=== PATIENT | male | born 1970 | race Caucasian/White ===

== ENCOUNTER 2017-10-24 11:59 | Inpatient (IN) ==
[2017-10-24 12:34] LABS: Bilirubin,Urine Negative (Negative); Blood,Urine Negative (Negative); Clarity,Urine Clear (Clear); Color,Urine Dark Yellow (Yellow); Glucose,Urine (UA) Normal (Normal); Ketones,Urine Negative (Negative); Leukocyte Esterase,Urine Negative (Negative); Nitrite,Urine Negative (Negative); PH,Urine 5.5 pH Units (5.0-8.0); Protein,Urine 100 mg/dL (Neg-Trace); Specific Gravity,Urine 1.025 (1.010-1.025); Urobilinogen,Urine Normal (Normal)
[2017-10-24 12:38] LABS: Bacteria,Urine None Seen per hpf (None-Few); Hyaline Casts,Urine None Seen per lpf (None-Few); Squamous Epithelial Cell,Urine Moderate per lpf (None-Few); WBC,Urine 0-3 per hpf (0-3)
[2017-10-24 13:21] LABS: Basophils % 0.3 %; Eosinophils % 0.3 %; Hematocrit 49.3 % (37.5-50.1); Immature Granulocytes % 0.4 % (0-4); Lymphocytes # 1.9 K/mcL (0.6-4.6); Lymphocytes % 16.2 %; Mean Corpuscular HGB Conc 34.5 g/dL (31.6-35.5); Mean Corpuscular Hemoglobin 31.1 pg (28.0-33.3); Mean Corpuscular Volume 90.3 fL (83.0-100.0); Mean Platelet Volume 10.7 fL (9.4-12.4); Monocytes # 0.7 K/mcL (0.0-1.3); Monocytes % 5.7 %; Platelet Count 368 K/mcL (140-400); Red Blood Count 5.46 M/mcL (4.19-5.50); Red Cell Distribution Width 12.3 % (11.5-14.5); Segmented Neutrophils % 77.1 %
[2017-10-24 14:04] LABS: Alanine Aminotransferase 74 Units/L (7-52); Albumin 4.7 g/dL (3.5-5.7); Albumin/Globulin Ratio 1.1 (1.1-2.2); Alkaline Phosphatase 68 Units/L (34-104); Aspartate Amino Transferase 29 Units/L (13-39); BUN/Creatinine Ratio 8 (6-26); Bilirubin,Direct 0.2 mg/dL (0.0-0.2); Bilirubin,Indirect 0.9 mg/dL (0.0-1.2); Bilirubin,Total 1.1 mg/dL (0.3-1.0); Blood Urea Nitrogen 9 mg/dL (6-20); Calcium 9.8 mg/dL (8.6-10.3); Carbon Dioxide 24 mEq/L (23-29); Chloride 105 mEq/L (98-107); Globulin 4.3 g/dL (2.4-3.5); Glucose 119 mg/dL (70-105); Lipase 9 Units/L (11-82); Osmolality,Calculated 286 (280-300); Potassium 3.8 mEq/L (3.5-5.1); Sodium 138 mEq/L (136-145); eGFR For African Americans > 60 (> 60); eGFR For Non-African Americans > 60 (> 60)
[2017-10-24] MEDS ORDERED: *HR* HYDROmorphone (PF) 1 MG/ML SYRINGE IVP ONE ×2 (15:11→18:45)
[2017-10-24] MEDS ORDERED: 0.9 % Sodium Chloride 1,000 ML IVC ONE (15:11)
[2017-10-24] MEDS ORDERED: Ondansetron 4 MG/2 ML VIAL IVP ONE (15:11)
--- NOTE | 2017-10-24 16:49 | Emergency Department Note ---
START Narrative - START START: I examined this patient and my medical decision-making was reviewed with the Resident Physician. I agree with the documented findings, disposition and treatment plan as described except to the extent set forth below. 47yo M here for upper abd pain. hx of pancreatitis. Patient states he has recurrent upper abdominal pain associated with nausea and vomiting. Workup here does not reveal any significant lab findings however he does have evidence of pancreatitis on the CAT scan. We will admit the patient for observation for IV fluids and antiemetics and pancreatic and bowel rest. He has had a previous cholecystectomy.
[2017-10-24 17:12] LABS: Amylase 22 Units/L (29-103)
--- NOTE | 2017-10-24 17:35 | Emergency Department Note ---
Disposition Clinical Impression: Acute pancreatitis Qualifiers: Pancreatitis type: unspecified pancreatitis type Acute pancreatitis complication: unspecified Qualified Code(s): K85.90 - Acute pancreatitis without necrosis or infection, unspecified Disposition: Admitted As Inpatient Condition: Good Referrals: Maritza Aguiar [Primary Care Provider] - Forms: ED Satisfaction Letter Nausea/Vomiting/Diarrhea HPI - General Chief complaint: ED Nausea/Vomiting/Diarrhea Stated complaint: N/V/D Time Seen by Provider: 10/24/17 14:53 Source: patient Limitations: no limitations Nursing Notes Reviewed: Yes Vital Signs Reviewed: Yes - History of Present Illness HPI Narrative: Patient presents to the emergency department for evaluation of nausea vomiting and abdominal pain. Patient's symptoms started 4 days ago. Patient states unable to keep anything down. He has epigastric pain that is tender to palpation. Patient states that he had similar symptoms in the past had gallbladder problems. Previous cholecystectomy in the . The time he had problems with his pancreatic duct. He said it was blocked. He said they did an intervention. Patient has no other insight into what intervention was. The patient has initial blood work done from triage showing the he has a mild elevated ALC but no significant elevated lipase. Patient will undergo further evaluation with CT with IV contrast the abdomen and pelvis. Pain and nausea control. - Related Data Home Medications Medication Instructions Recorded Confirmed No Known Home Drugs 10/24/17 10/24/17 Allergies Allergy/AdvReac Type Severity Reaction Status Date / Time No Known Allergies Allergy Verified 10/24/17 12:10 Review of Systems: CONSTITUTIONAL: No weight loss, fever, chills, weakness or fatigue. HEENT: Eyes: No visual changes. Ears, Nose, Throat: No hearing loss, difficulty talking or unable to swallow. SKIN: No rash or itching. CARDIOVASCULAR: No chest pain, chest pressure or chest discomfort. No palpitations or edema. RESPIRATORY: No shortness of breath, cough or sputum. GASTROINTESTINAL: Nausea vomiting and abdominal pain GENITOURINARY: No burning on urination or hematuria. NEUROLOGICAL: No headache, dizziness, syncope, paralysis, ataxia, numbness or tingling in the extremities. No change in bowel or bladder control. MUSCULOSKELETAL: No muscle pain, back pain, joint pain or stiffness. Past Medical History - Past Medical History Medical history: Reports: asthma Psychiatric history: Reports: no psych history - Social History Smoking Status: Never smoker Smokeless Tobacco Status: No Alcohol use: Reports: none Drug use: Reports: none Physical Exam General: Well appearing, nontoxic, no acute distress Head: Normocephalic Atraumatic Eyes: PERRL, EOMI ENT: Airway patent, no stridor Neck: supple, no meningismus Chest: Lungs clear to auscultation bilateral Cardiac: Regular rate and rhythm, no murmurs, rubs or gallops Abdomen: Tenderness to the epigastric and right upper quadrant area with mild guarding. No rebound tenderness. No CVA tenderness. Skin: No rash, normal skin tone Neuro: Alert and Oriented to person, place, and time; No focal deficit, CN 2-12 symmetric and intact - General Limitations: no limitations General appearance: alert, in no apparent distress Course - Reevaluation(s) Reevaluation #1: CT scan shows peripancreatic fat stranding at the head of the pancreas. Pancreatitis with clinically with this patient. Patient has not had any recent or recurring symptoms consistent with chronic pancreatitis. 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 Patient will be brought into the hospital for further evaluation of pancreatitis. A call will be placed to GI. - Consultations Consultation #1: Discussed with GI, Dr. Lopes. Recommends MRCP for evaluation of the pancreatic duct. Consultation #2: Discussed with hospitalist, Dr. Courtney accepts. Vital Signs Temperature 98.4 F 10/24/17 12:07 Pulse Rate 91 10/24/17 12:07 Respiratory Rate 16 10/24/17 12:07 Blood Pressure 167/118 10/24/17 12:07 O2 Sat by Pulse Oximetry 95 10/24/17 12:07 Temperature 98.4 F 10/24/17 12:07 Pulse Rate 87 10/24/17 16:43 Respiratory Rate 16 10/24/17 16:43 Blood Pressure 125/84 10/24/17 16:43 O2 Sat by Pulse Oximetry 93 10/24/17 16:43 Oxygen Delivery Oxygen Delivery Room Air Nausea/Vomiting/Diarrhea - Lab Data Result diagrams: 10/24/17 13:15 10/24/17 13:15 Lab Results 10/24/17 10/24/17 10/24/17 Range/Units 12:15 13:15 13:15 WBC 11.6 H (4.3-11.1) K/mcL RBC 5.46 (4.19-5.50) M/mcL Hgb 17.0 H (12.9-16.9) g/dL Hct 49.3 (37.5-50.1) % MCV 90.3 (83.0-100.0) fL MCH 31.1 (28.0-33.3) pg MCHC 34.5 (31.6-35.5) g/dL RDW 12.3 (11.5-14.5) % Plt Count 368 (140-400) K/mcL MPV 10.7 (9.4-12.4) fL Immature Gran % 0.4 (0-4) % Seg Neutrophils % 77.1 % Lymphocytes % 16.2 % Monocytes % 5.7 % Eosinophils % 0.3 % Basophils % 0.3 % Neutrophils # 9.0 H (1.6-8.9) K/mcL Lymphocytes # 1.9 (0.6-4.6) K/mcL Monocytes # 0.7 (0.0-1.3) K/mcL Eosinophils # 0.0 (0.0-0.6) K/mcL Basophils # 0.0 (0.0-0.2) K/mcL Sodium 138 (136-145) mEq/L Potassium 3.8 (3.5-5.1) mEq/L Chloride 105 (98-107) mEq/L Carbon Dioxide 24 (23-29) mEq/L BUN 9 (6-20) mg/dL Creatinine 1.09 (0.70-1.30) mg/dL Est GFR ( Amer) > 60 (> 60) Est GFR (Non-Af Amer) > 60 (> 60) BUN/Creatinine Ratio 8 (6-26) Glucose 119 H (70-105) mg/dL Calculated Osmolality 286 (280-300) Calcium 9.8 (8.6-10.3) mg/dL Total Bilirubin 1.1 H (0.3-1.0) mg/dL Direct Bilirubin 0.2 (0.0-0.2) mg/dL Indirect Bilirubin 0.9 (0.0-1.2) mg/dL AST 29 (13-39) Units/L ALT 74 H (7-52) Units/L Alkaline Phosphatase 68 (34-104) Units/L Serum Total Protein 9.0 H (6.4-8.9) g/dL Albumin 4.7 (3.5-5.7) g/dL Globulin 4.3 H (2.4-3.5) g/dL Albumin/Globulin Ratio 1.1 (1.1-2.2) Amylase 22 L (29-103) Units/L Lipase 9 L (11-82) Units/L Urine Color Dark Yellow (Yellow) Urine Clarity Clear (Clear) Urine pH 5.5 (5.0-8.0) pH Units Ur Specific [place] 1.025 (1.010-1.025) Urine Protein 100 H (Neg-Trace) mg/dL Urine Glucose (UA) Normal (Normal) mg/dL Urine Ketones Negative (Negative) mg/dL Urine Blood Negative (Negative) Urine Nitrite Negative (Negative) Urine Bilirubin Negative (Negative) Urine Urobilinogen Normal (Normal) mg/dL Ur Leukocyte Esterase Negative (Negative) Urine Microscopic RBC 3-5 H (0-3) per hpf Urine Microscopic WBC 0-3 (0-3) per hpf Ur Squamous Epith Cells Moderate H (None-Few) per lpf Urine Bacteria None Seen (None-Few) per hpf Hyaline Casts None Seen (None-Few) per lpf Ur Culture Indicated? NO (NO)
[2017-10-24] MEDS ORDERED: Metoclopramide 10 MG/2 ML VIAL IVP ONE (18:45)
[2017-10-24] MEDS ORDERED: Naloxone 0.4 MG/ML INJ IVP PRN ×2 (21:18)
--- NOTE | 2017-10-24 21:26 | Internal Med History&Physical ---
Date of Encounter: 10/24/17 Time of Encounter: 21:24 Assessment and Plan (1) Acute pancreatitis Current visit: Yes Status: Acute Possible acute pancreatitis by imaging, consider possible pancreatic mass Nothing by mouth after midnight, MRCP recommended by GI IV fluids, Dilaudid as needed Protonix IV for GI prophylaxis and subcutaneous heparin for DVT prophylaxis. The patient will be admitted as inpatient, expected to stay more than 2 midnights. Full code. Time spent on this admission 40 minutes Qualifiers: Pancreatitis type: unspecified pancreatitis type Acute pancreatitis complication: unspecified Qualified Code(s): K85.90 - Acute pancreatitis without necrosis or infection, unspecified (2) Lesion of vertebra Current visit: Yes Status: Acute C3 vertebral lesion Consider further imaging if a pancreatic mass is found (3) Dehydration Current visit: Yes Status: Acute (4) Leukocytosis Current visit: Yes Status: Acute Qualifiers: Leukocytosis type: unspecified Qualified Code(s): D72.829 - Elevated white blood cell count, unspecified (5) Polycythemia Current visit: Yes Status: Acute Likely secondary to dehydration (6) Intractable nausea and vomiting Current visit: Yes Status: Acute Qualifiers: Vomiting type: unspecified Qualified Code(s): R11.2 - Nausea with vomiting , unspecified Internal Medicine - H&P: HPI Chief complaint: Abdominal pain Admitted From: Emergency Dept History of present illness: Mr. Bhakta is a 47 year old male with no past medical history, recently diagnosed with a possible C3 vertebral lesion last week at [facility], came complaining of 4 days of abdominal pain, epigastric that got worse yesterday and was accompanied by nausea vomiting and some watery diarrhea. The epigastric pain persists without radiation. CT scan of the abdomen shows a peripancreatic fat stranding mainly in the pancreatic head the Maria R percent acute interstitial pancreatitis. His lipase is normal ALT is 74. Pain is rated at 4 out of 10, hemoglobin 17 and hematocrit is 49. White blood cell count is 11.6. The patient feels dizzy. The gastroenterology service was called and recommended to do an MRCP. Patient denies any other complaints, had a cholecystectomy many years ago in 1994, back surgery, does not drink. Past Med Surg Social Fam HX - Past Medical History Medical history: asthma, other (C3 vertebral lesion diagnosed at [facility], diverticulosis) Psychiatric history: no psych history - Past Surgical History Surgical History: cholecystectomy, other (Back surgery) - Social History Smoking Status: Never smoker Smokeless Tobacco Status: No Alcohol use: none Drug use: none - Additional Family History Additional family history: Mother with diabetes, liver cancer, colon cancer and myocardial infarction. Father with pacemaker and Parkinson's Internal Medicine - H&P: Meds No Known Home Drugs 10/24/17 [History] 3 Allergy/AdvReac Type Severity Reaction Status Date / Time No Known Allergies Allergy Verified 10/24/17 12:10 All Systems PM: A 10-system review of systems was performed and is negative for pertinent findings except as documented above in the HPI. Review of systems: Persistent epigastric pain and nausea, other systems out of the 10 reviewed were negative - Constitutional Vitals: Temp Pulse Resp BP Pulse Ox 98.4 F 87 16 125/88 93 10/24/17 12:07 10/24/17 20:00 10/24/17 20:00 10/24/17 20:00 10/24/17 20:00 General appearance: Present: A&O X 3 - Head Head exam: Present: atraumatic, normocephalic - Eye Eye exam: Present: PERRL, conjuntiva pink, sclera anicteric Pupils: Present: PERRL - Neck Neck exam general surgery: Present: supple, trachea midline. Absent: lymphadenopathy - Respiratory Respiratory exam: Present: CTAB. Absent: accessory muscle use, rales, rhonchi, wheezes - Cardiovascular Cardiovascular exam: Present: RRR, +S1, +S2. Absent: diastolic murmur, gallop, rubs, systolic murmur - GI/Abdominal GI/Abdominal exam: Present: distended, normal bowel sounds, soft, tenderness ( Epigastric tenderness), no peritoneal signs - Extremities Exam Extremities exam: Present: warm, radial pulses palpable and symmetrical. Absent : calf tenderness, cyanotic, pedal edema - Neurological Exam Neurological exam: Present: CN II-XII intact, oriented X3, no focal deficits. Absent: pronater drift, facial droop, speech deficit - Skin Skin exam: Present: dry, intact Internal Med - H&P Results - Labs CBC & Chem 7: 10/24/17 13:15 10/24/17 13:15
[2017-10-24] MEDS: Pantoprazole 40 MG VIAL IVP SCH (22:53)
[2017-10-24] MEDS: D5% in 0.45% NACL 1,000 ML IVC SCH (22:54)
[2017-10-24] MEDS: *HR* HYDROmorphone (PF) 1 MG/ML SYRINGE IVP PRN (22:54)
[2017-10-24] MEDS: *HR* Heparin 5,000 UNIT/ML VIAL SQ SCH (23:01)
[2017-10-25] MEDS: Pantoprazole 40 MG VIAL IVP SCH (05:26)
[2017-10-25] MEDS: *HR* Heparin 5,000 UNIT/ML VIAL SQ SCH ×3 (05:27→22:31)
[2017-10-25 06:30] LABS: Alanine Aminotransferase 56 Units/L (7-52); Albumin 3.6 g/dL (3.5-5.7); Albumin/Globulin Ratio 1.4 (1.1-2.2); Alkaline Phosphatase 48 Units/L (34-104); Aspartate Amino Transferase 26 Units/L (13-39); BUN/Creatinine Ratio 9 (6-26); Blood Urea Nitrogen 9 mg/dL (6-20); Calcium 8.3 mg/dL (8.6-10.3); Carbon Dioxide 25 mEq/L (23-29); Chloride 104 mEq/L (98-107); Cholesterol 199 mg/dL (< 200); Globulin 2.5 g/dL (2.4-3.5); Glucose 134 mg/dL (70-105); HDL Cholesterol 22 mg/dL (40-59); LDL Cholesterol,Calculated 154 mg/dL (0-99); Lipase 20 Units/L (11-82); Magnesium 1.8 mg/dL (1.6-2.6); Osmolality,Calculated 283 (280-300); Potassium 3.5 mEq/L (3.5-5.1); Sodium 136 mEq/L (136-145); Total Protein 6.1 g/dL (6.4-8.9); Triglycerides 116 mg/dL (< 150); eGFR For African Americans > 60 (> 60); eGFR For Non-African Americans > 60 (> 60)
[2017-10-25 06:34] LABS: Hematocrit 39.6 % (37.5-50.1); Mean Corpuscular HGB Conc 33.8 g/dL (31.6-35.5); Mean Corpuscular Volume 91.7 fL (83.0-100.0); Mean Platelet Volume 10.9 fL (9.4-12.4); Platelet Count 287 K/mcL (140-400); Red Blood Count 4.32 M/mcL (4.19-5.50); Red Cell Distribution Width 12.3 % (11.5-14.5)
[2017-10-25 07:27] LABS: Hemoglobin 13.4 g/dL (12.9-16.9)
[2017-10-25] MEDS: *HR* HYDROmorphone (PF) 1 MG/ML SYRINGE IVP PRN ×4 (07:45→22:31)
[2017-10-25] MEDS: D5% in 0.45% NACL 1,000 ML IVC SCH ×2 (07:59→13:33)
--- NOTE | 2017-10-25 10:22 | Internal Med Progress Note ---
Date of Encounter: 10/25/17 Time of Encounter: 10:17 - Subjective Interval history: HPI: 47 year old male with 4 days of epigastric abdominal pain and was accompanied by nausea, vomiting, and some watery diarrhea. Epigastric pain is worsened with eating. CT A/P with subtle peripancreatic fat stranding in the region of the pancreatic head, mild diverticulosis. Lipase is normal. ALT was 74 on admission and 56 today. Triglycerides are normal at 116. MRCP has been ordered along with GI consult. He was made NPO. Interval changes: He stateshis n is minimally improved this am Physical Exam: See below Assessment and Plan Acute pancreatitis Continue NPO MRCP recommended by GI (stilpending) IV fluids, Dilaudid as needed Protonix IV for GI prophylaxis C3 vertebral lesion: Consider further imaging if a pancreatic mass is found Polycythemia Likely secondary to dehydration Intractable nausea and vomiting - Constitutional Vitals: Temp Pulse Resp BP Pulse Ox 98.1 F 73 15 136/82 95 10/25/17 06:53 10/25/17 06:53 10/25/17 06:53 10/25/17 06:53 10/25/17 06:53 General appearance: Present: A&O X 3, pleasant - Head Head exam: Present: atraumatic, normocephalic - Eye Eye exam: Present: PERRL, conjuntiva pink, sclera anicteric Pupils: Present: PERRL - Neck Neck exam general surgery: Present: supple, trachea midline. Absent: lymphadenopathy - Respiratory Respiratory exam: Present: CTAB. Absent: accessory muscle use, rales, rhonchi, wheezes - Cardiovascular Cardiovascular exam: Present: RRR, +S1, +S2. Absent: diastolic murmur, gallop, rubs, systolic murmur - GI/Abdominal GI/Abdominal exam: Present: guarding, normal bowel sounds, soft, no peritoneal signs. Absent: distended, hyperactive bowel sounds, hypoactive bowel sounds, rebound, splenomegaly, tenderness - Extremities Exam Extremities exam: Present: warm, radial pulses palpable and symmetrical. Absent : calf tenderness, cyanotic, pedal edema - Neurological Exam Neurological exam: Present: CN II-XII intact, oriented X3, no focal deficits. Absent: pronater drift, facial droop, speech deficit - Skin Skin exam: Present: dry, intact Internal Medicine: Result - Labs CBC & Chem 7: 01/25/18 05:39 10/25/17 05:39 Labs: Short CBC 10/25/17 Range/Units 05:39 WBC 8.4 (4.3-11.1) K/mcL Hgb 13.4 D (12.9-16.9) g/dL Hct 39.6 (37.5-50.1) % Plt Count 287 (140-400) K/mcL BMP 10/25/17 05:39 Sodium 136 Potassium 3.5 Chloride 104 Carbon Dioxide 25 BUN 9 Creatinine 1.05 Glucose 134 H Calcium 8.3 L Liver Function 10/25/17 Range/Units 05:39 Total Bilirubin 1.0 (0.3-1.0) mg/dL AST 26 (13-39) Units/L ALT 56 H (7-52) Units/L Alkaline Phosphatase 48 (34-104) Units/L Albumin 3.6 (3.5-5.7) g/dL Consult Discharge Plan - Plan Referrals: Maritza Aguiar [Primary Care Provider] -
--- NOTE | 2017-10-25 12:02 | Gastroenterology Consult Note ---
<Shade Kaur Danial - Last Filed: 10/25/17 12:00> Date of Encounter: 10/25/17 Time of Encounter: 10:15 - Assessment and plan (1) Epigastric pain Current Visit: Yes Status: Acute Assessment and plan: Continue PPI and complete EGD today to r/o esophagitis, gastritis, duodenitis, PUD, MW tear, or AVM. Keep patient NPO. (2) Acute pancreatitis Current Visit: Yes Status: Acute Assessment and plan: CT A/P with subtle peripancreatic fat stranding in the region of the pancreatic head, mild diverticulosis. Lipase is normal. ALT was 74 on admission and 56 today. Triglycerides are normal at 116. MRCP has been ordered. Check IgG4, ionized calcium, and SOPHIE. Qualifiers: Pancreatitis type: unspecified pancreatitis type Acute pancreatitis complication: unspecified Qualified Code(s): K85.90 - Acute pancreatitis without necrosis or infection, unspecified - Time Spent With Patient Total time spent is greater than 50% in coordination of care (as documented) at patient's floor/unit and/or counseling patient: GI History of Present Illness - Data of Consult Patient: new to practice Consult date: 10/25/17 Requesting Physician: Sánchez Grimes - Consult Narrative Reason for consult: Pancreatitis History of present illness: Mr. Bhakta is a 47 year old male with PMHx of asthma, diverticulosis, recently diagnosed with possible C3 vertebral lesion presented with 4 days of epigastric abdominal pain and was accompanied by nausea, vomiting, and some watery diarrhea. Epigastric pain is worsened with eating. CT A/P with subtle peripancreatic fat stranding in the region of the pancreatic head, mild diverticulosis. Lipase is normal. ALT was 74 on admission and 56 today. Triglycerides are normal at 116. MRCP has been ordered but not yet completed. Procedures: None NSAIDs: None Anticoagulation: None Past Med Surg Social Fam HX - Past Medical History Medical history: asthma, other Psychiatric history: no psych history - Past Surgical History Surgical History: cholecystectomy, other - Social History Smoking Status: Never smoker Smokeless Tobacco Status: No Alcohol use: none Drug use: none - Gastrointestinal Gastrointestinal: Present: as per HPI - Constitutional Constitutional: as per HPI - EENT Eyes: as per HPI Ears: Present: as per HPI Nose, mouth and throat: Present: as per HPI - Cardiovascular Cardiovascular ROS: Present: as per HPI - Respiratory Respiratory IM: Present: as per HPI - Genitourinary Genitourinary: Absent: change in color, Urinary frequency - Neurological ROS Neurological GI: Present: as per HPI - Hematologic/Lymphatic Hematologic/Lymphatic pediatric: Present: as per HPI - Musculoskeletal Musculoskeletal ROS GI: Present: as per HPI - Integumentary Integumentary GI: Present: as per HPI - Psychiatric ROS Psychiatric GI: Present: as per HPI - Endocrine Endocrine IM: Present: as per HPI - Constitutional Vitals: Temp Pulse Resp BP Pulse Ox 98.2 F 83 16 126/81 95 10/25/17 11:10 10/25/17 11:10 10/25/17 11:10 10/25/17 11:10 10/25/17 11:10 General appearance: Present: cooperative, A&O X 3, no acute distress, answers questions appropriately - Head Head exam: Present: atraumatic, normocephalic - Eye Eye exam: Present: normal appearance, sclera anicteric - ENT ENT exam: Present: mucous membranes dry - Neck Neck exam general surgery: Present: normal inspection, trachea midline - Respiratory Respiratory exam: Present: CTAB. Absent: rales, rhonchi - Cardiovascular Cardiovascular exam: Present: RRR, +S1, +S2 - GI/Abdominal GI/Abdominal exam: Present: soft, tenderness (epigastric), no peritoneal signs. Absent: distended, firm, guarding - Rectal Rectal exam: Present: deferred - Extremities Exam Extremities exam: Present: warm - Neurological Exam Neurological exam: Present: no focal deficits - Psychiatric Psychiatric exam: Present: normal affect, normal mood - Skin Skin exam: Present: dry, intact, normal color, warm Results - Labs CBC & Chem 7: 10/25/17 05:39 10/25/17 05:39 Labs: Last Result Calcium 8.3 mg/dL (8.6-10.3) L 10/25/17 05:39 Triglycerides 116 mg/dL (< 150) 10/25/17 05:39 Entire Visit Hgb 13.4 g/dL (12.9-16.9) D 10/25/17 05:39 Hct 39.6 % (37.5-50.1) 10/25/17 05:39 Total Bilirubin 1.0 mg/dL (0.3-1.0) 10/25/17 05:39 AST 26 Units/L (13-39) 10/25/17 05:39 ALT 56 Units/L (7-52) H 10/25/17 05:39 Amylase 22 Units/L (29-103) L 10/24/17 13:15 Lipase 20 Units/L (11-82) 10/25/17 05:39 Consult Discharge Plan - Plan Referrals: Maritza Aguiar [Primary Care Provider] - <Krystian Fragoso - Last Filed: 10/25/17 14:43> Date of Encounter: 10/25/17 Time of Encounter: 13:00 - Time Spent With Patient Total time spent is greater than 50% in coordination of care (as documented) at patient's floor/unit and/or counseling patient: GI History of Present Illness - Data of Consult Requesting Physician: Sánchez Grimes - Consult Narrative History of present illness: Mr. Bhakta is a 47 year old male - Constitutional Vitals: Temp Pulse Resp BP Pulse Ox 98.2 F 75 16 119/88 95 10/25/17 11:10 10/25/17 13:45 10/25/17 13:45 10/25/17 13:45 10/25/17 13:45 Results - Labs CBC & Chem 7: 10/25/17 05:39 10/25/17 05:39 Labs: Last Result Calcium 8.3 mg/dL (8.6-10.3) L 10/25/17 05:39 Triglycerides 116 mg/dL (< 150) 10/25/17 05:39 Entire Visit Hgb 13.4 g/dL (12.9-16.9) D 10/25/17 05:39 Hct 39.6 % (37.5-50.1) 10/25/17 05:39 Total Bilirubin 1.0 mg/dL (0.3-1.0) 10/25/17 05:39 AST 26 Units/L (13-39) 10/25/17 05:39 ALT 56 Units/L (7-52) H 10/25/17 05:39 Amylase 22 Units/L (29-103) L 10/24/17 13:15 Lipase 20 Units/L (11-82) 10/25/17 05:39 - Attending Attestation I examined this patient and my medical decision-making was reviewed with the HAND FINISHER. I agree with the documented findings, disposition and treatment plan as described except to the extent set forth below. Patient with epigastric pain. Started on Sunday. CT scan done which showed some mild haziness in the pancreatic head region but patient pancreatic enzymes are normal, Recommendation: EGD to rule out gastric/esophageal causes for his abdominal pain
[2017-10-25 12:20] LABS: VBG Ionized Calcium 1.14 mmol/L (1.15-1.35)
[2017-10-25] MEDS ORDERED: D5% in 0.3% NACL 1,000 ML IVC SCH (12:30)
--- NOTE | 2017-10-25 13:38 | Anesthesia Evaluation PreOp ---
Date of Encounter: 10/25/17 Time of Encounter: 13:35 - Past History Planned Operation: EGD Cardiac History: Denies any Significant Hx Pulmonary History: Asthma ACCOUNT CONSULTANT History: Denies Any Significant HX Other Medical History: Other (Polycythemia, N/V) Anesthesia History: No Prior Anesthetic Complications, Past Anesthesia (GB, Back sx) Alcohol Use: none Drug use: none Medications and Allergies No Known Home Drugs 10/24/17 [History] 3 Allergy/AdvReac Type Severity Reaction Status Date / Time No Known Allergies Allergy Verified 10/24/17 12:10 - Meds/Allergy Pre-op Review Medications Reviewed: Yes Allergies Reviewed: Yes Beta Blockers on Current Med List: No Anesthesia Results - Labs 10/25/17 05:39 10/25/17 05:39 - Imaging EKG: report reviewed (SINUS RHYTHM WITH FREQUENT SUPRAVENTRICULAR PREMATURE COMPLEXES) Anesthesia Exam O2 Sat O2 Sat by Pulse Oximetry 95 O2 Sat by Pulse Oximetry 95 O2 Sat by Pulse Oximetry 96 O2 Sat by Pulse Oximetry 93 O2 Sat by Pulse Oximetry 92 O2 Sat by Pulse Oximetry 93 O2 Sat by Pulse Oximetry 92 O2 Sat by Pulse Oximetry 93 O2 Sat by Pulse Oximetry 94 Vital Signs Temp Pulse Resp BP Pulse Ox 98.4 F 91 16 167/118 95 10/24/17 12:07 10/24/17 12:07 10/24/17 12:07 10/24/17 12:07 10/24/17 12:07 NPO (# of Hours): > 8 hrs Pain Scale: 0 Pain Scale Used: Numeric (1 - 10) - HEENT Pupil (Motor): Pupils equal, EOMI Mallampati: III Teeth: Normal Oral Opening: Greater than 3 - ACCOUNT CONSULTANT LOC: Oriented ACCOUNT CONSULTANT Motor: Normal RUE, Normal LUE, Normal RLE, Normal LLE, Normal Face ACCOUNT CONSULTANT Sensory: Normal: RUE, LUE, RLE, LLE, Face - Cardiac Rhythm: Regular Murmur: None JVD: No Carotid Bruit: No - Pulmonary Breath Sounds: bilateral Clear Respiratory Effort: Symmetrical Anesthesia Assess/Plan ASA Score: 2 Modified [place] Scale for Level of Consciousness: Cooperative, oriented, and tranquil Anesthetic Plan: MAC Autologous Blood: Yes Monitoring Plan: Standard Monitors Recovery Plan: PACU
[2017-10-25] MEDS ORDERED: 0.9 % Sodium Chloride 500 ML IVC SCH (14:00)
[2017-10-25] MEDS ORDERED: Lidocaine -MPF 2% 2 ML VIAL ONE (14:37)
[2017-10-25] MEDS ORDERED: *HR* Propofol 200 MG/20 ML VIAL IVP ONE ×2 (14:37)
--- NOTE | 2017-10-25 14:42 | Anesthesia Evaluation Post Op ---
Date of Encounter: 10/25/17 Time of Encounter: 14:41 - Vital Signs Vital Signs: 114/72, HR 81, Spo2 92%, RR14 - Lungs Lungs: Clear Ascult./Percussion - Airway Airway: Non-obstructed - Cardiovascular Regular Rate - Mental Status Mental Status: Alert & Oriented, Answers Appropriately - Pain Pain Scale: 0 Pain Scale used: Numeric (1 - 10) - Nausea Vomiting Nausea Vomiting: Not Present - Hydration Hydration: NPO, Has not voided - Discharge PostOp Status: Transfer Patient to floor
[2017-10-25] MEDS: Acetaminophen 325 MG TABLET PO PRN (16:06)
[2017-10-26] MEDS: *HR* HYDROmorphone (PF) 1 MG/ML SYRINGE IVP PRN ×6 (00:29→23:59)
[2017-10-26] MEDS: Pantoprazole 40 MG VIAL IVP SCH (05:19)
[2017-10-26] MEDS: *HR* Heparin 5,000 UNIT/ML VIAL SQ SCH ×3 (05:19→21:34)
[2017-10-26] MEDS: Ondansetron 4 MG/2 ML VIAL IVP PRN ×2 (09:07→18:19)
[2017-10-26 11:40] LABS: Hepatitis B Core IgM Nonreactive (Nonreactive); Hepatitis B Surface Antigen Nonreactive (Nonreactive); Hepatitis C Virus Antibody Nonreactive (Nonreactive)
[2017-10-26 11:41] LABS: Hepatitis A Antibody IgM Nonreactive (Nonreactive)
[2017-10-26] MEDS ORDERED: 0.9 % Sodium Chloride 1,000 ML ONE (11:55)
--- NOTE | 2017-10-26 12:26 | Internal Med Progress Note ---
Date of Encounter: 10/26/17 Time of Encounter: 12:24 - Subjective Interval history: HPI: 47 year old male with 4 days of epigastric abdominal pain and was accompanied by nausea, vomiting, and some watery diarrhea. Epigastric pain is worsened with eating. CT A/P with subtle peripancreatic fat stranding in the region of the pancreatic head, mild diverticulosis. Lipase is normal. ALT was 74 on admission and 56 today. Triglycerides are normal at 116. MRCP has been ordered along with GI consult. He was made NPO. 10-26-2017: C/o 8/10 epigastric an bilateral UQ pain. His diet was advaned and he 's not tolerating it. No N/V/D Interval changes: He states his nausea is minimally improved this am but hipain is worse Physical Exam: General appearance: Present: A&O X 3, pleasant - Head Head exam: Present: atraumatic, normocephalic - Eye Eye exam: Present: PERRL, conjuntiva pink, sclera anicteric Pupils: Present: PERRL - Neck Neck exam general surgery: Present: supple, trachea midline. Absent: lymphadenopathy - Respiratory Respiratory exam: Present: CTAB. Absent: accessory muscle use, rales, rhonchi, wheezes - Cardiovascular Cardiovascular exam: Present: RRR, +S1, +S2. Absent: diastolic murmur, gallop, rubs, systolic murmur - GI/Abdominal GI/Abdominal exam: Present: guarding, normal bowel sounds, soft, no peritoneal signs. Absent: distended, hyperactive bowel sounds, hypoactive bowel sounds, rebound, splenomegaly, tenderness - Extremities Exam Extremities exam: Present: warm, radial pulses palpable and symmetrical. Absent : calf tenderness, cyanotic, pedal edema - Neurological Exam Neurological exam: Present: CN II-XII intact, oriented X3, no focal deficits. Absent: pronater drift, facial droop, speech deficit - Skin Skin exam: Present: dry, intact Assessment and Plan Acute pancreatitis His diet was andvanced yesterday following the EGD and his pain is worse today. MRCP recommended by GI (still pending) IV fluids, Dilaudid as needed (dose increased from 0.5 to 1 mg q2 hrs prn) Protonix IV for GI prophylaxis C3 vertebral lesion: Consider further imaging if a pancreatic mass is found Polycythemia Likely secondary to dehydration Intractable nausea and vomiting now resolved - Constitutional Vitals: Temp Pulse Resp BP Pulse Ox 98.2 F 87 16 154/99 93 10/26/17 10:32 10/26/17 10:32 10/26/17 10:32 10/26/17 10:32 10/26/17 10:32 General appearance: Present: A&O X 3, pleasant Internal Medicine: Result - Labs CBC & Chem 7: 10/26/17 12:58 10/26/17 16:22 Consult Discharge Plan - Plan Referrals: Maritza Aguiar [Primary Care Provider] -
[2017-10-26] MEDS: Ketorolac 15 MG/ML VIAL IVP PRN ×2 (13:45→20:04)
[2017-10-26] MEDS: 0.9 % Sodium Chloride 1,000 ML IVC SCH (13:52)
[2017-10-26 13:53] LABS: Basophils # 0.1 K/mcL (0.0-0.2); Basophils % 0.4 %; Eosinophils # 0.1 K/mcL (0.0-0.6); Eosinophils % 0.4 %; Immature Granulocytes % 0.9 % (0-4); Lymphocytes # 1.7 K/mcL (0.6-4.6); Lymphocytes % 13.5 %; Mean Corpuscular HGB Conc 35.1 g/dL (31.6-35.5); Mean Corpuscular Hemoglobin 30.9 pg (28.0-33.3); Mean Corpuscular Volume 88.1 fL (83.0-100.0); Mean Platelet Volume 12.2 fL (9.4-12.4); Monocytes # 0.8 K/mcL (0.0-1.3); Monocytes % 6.1 %; Neutrophils # 9.8 K/mcL (1.6-8.9); Platelet Count 267 K/mcL (140-400); Red Blood Count 4.88 M/mcL (4.19-5.50); Segmented Neutrophils % 78.7 %
[2017-10-26 14:02] LABS: Hemoglobin 15.1 g/dL (12.9-16.9)
[2017-10-26 17:58] LABS: Albumin 4.1 g/dL (3.5-5.7); Bilirubin,Total 0.6 mg/dL (0.3-1.0); Calcium 9.2 mg/dL (8.6-10.3); Carbon Dioxide 26 mEq/L (23-29); Chloride 101 mEq/L (98-107); Potassium 3.5 mEq/L (3.5-5.1); Sodium 135 mEq/L (136-145)
[2017-10-26 18:04] LABS: Alanine Aminotransferase 55 Units/L (7-52); Albumin/Globulin Ratio 1.3 (1.1-2.2); Alkaline Phosphatase 62 Units/L (34-104); Aspartate Amino Transferase 24 Units/L (13-39); BUN/Creatinine Ratio 6 (6-26); Blood Urea Nitrogen 6 mg/dL (6-20); Globulin 3.1 g/dL (2.4-3.5); Glucose 99 mg/dL (70-105); Osmolality,Calculated 278 (280-300); Total Protein 7.2 g/dL (6.4-8.9); eGFR For African Americans > 60 (> 60); eGFR For Non-African Americans > 60 (> 60)
[2017-10-26] MEDS: D5% in 0.45% NACL 1,000 ML IVC SCH (19:54)
[2017-10-27] MEDS: Acetaminophen 325 MG TABLET PO PRN (00:04)
[2017-10-27] MEDS: 0.9 % Sodium Chloride 1,000 ML IVC SCH (02:42)
[2017-10-27] MEDS: *HR* Heparin 5,000 UNIT/ML VIAL SQ SCH (06:04)
[2017-10-27] MEDS: Pantoprazole 40 MG VIAL IVP SCH (06:04)
[2017-10-27 08:44] LABS: BUN/Creatinine Ratio 7 (6-26); Blood Urea Nitrogen 7 mg/dL (6-20); Calcium 8.8 mg/dL (8.6-10.3); Carbon Dioxide 27 mEq/L (23-29); Chloride 105 mEq/L (98-107); Glucose 102 mg/dL (70-105); Osmolality,Calculated 282 (280-300); Potassium 3.6 mEq/L (3.5-5.1); Sodium 137 mEq/L (136-145); eGFR For African Americans > 60 (> 60); eGFR For Non-African Americans > 60 (> 60)
[2017-10-27 09:20] LABS: Basophils # 0.1 K/mcL (0.0-0.2); Basophils % 0.6 %; Eosinophils # 0.1 K/mcL (0.0-0.6); Eosinophils % 1.5 %; Hematocrit 43.3 % (37.5-50.1); Hemoglobin 14.6 g/dL (12.9-16.9); Immature Granulocytes % 0.5 % (0-4); Lymphocytes # 2.4 K/mcL (0.6-4.6); Lymphocytes % 26.8 %; Mean Corpuscular HGB Conc 33.7 g/dL (31.6-35.5); Mean Corpuscular Hemoglobin 30.5 pg (28.0-33.3); Mean Corpuscular Volume 90.6 fL (83.0-100.0); Mean Platelet Volume 11.3 fL (9.4-12.4); Monocytes # 0.9 K/mcL (0.0-1.3); Monocytes % 9.7 %; Neutrophils # 5.4 K/mcL (1.6-8.9); Platelet Count 309 K/mcL (140-400); Red Blood Count 4.78 M/mcL (4.19-5.50); Red Cell Distribution Width 12.1 % (11.5-14.5); Segmented Neutrophils % 60.9 %
[2017-10-27 11:13] LABS: ANA IgG by ELISA NONE DETECTED (None Detected)
[2017-10-27 11:16] VITALS: BP 158/98
--- NOTE | 2017-10-27 13:31 | Discharge Summary ---
Date of Encounter: 10/27/17 Time of Encounter: 13:30 - Discharge Medications Prescriptions: OxyCODONE/APAP 10/325 [Percocet 10/325 MG] 1 each PO Q6HR PRN 5 Days #20 tablet PRN Reason: Pain Omeprazole [PriLOSEC] 40 mg PO BIDAC 30 Days #60 capsule. Home Medications: Omeprazole [PriLOSEC] 40 mg PO BIDAC 30 Days #60 capsule. 10/27/17 [Rx] OxyCODONE/APAP 10/325 [Percocet 10/325 MG] 1 each PO Q6HR PRN 5 Days #20 tablet 10/27/17 [Rx] Allergies/Adverse Reactions: 3 Allergy/AdvReac Type Severity Reaction Status Date / Time No Known Allergies Allergy Verified 10/24/17 12:10 Date of admission: 10/24/17 21:18 Primary care physician: Maritza Aguiar Consults: 10/24/17 21:22 Consult to Gastroenterology [CONS] Routine Consulting Provider: Gastroenterology Erin Reason for Consult: pancreatitis, called by ER Call Completed: No Discharging clinician: Dontae Ray - Patient Status Disposition: Home, Self-Care Condition: Good - Discharge Instructions Follow Up With: Krystian Fragoso MD [Partnered Physician] - (Web Request entered. Thank you) Hospital course: Hospital course: 47 year old male with 4 days of epigastric abdominal pain and was accompanied by nausea, vomiting, and some watery diarrhea. Epigastric pain is worsened with eating. CT A/P with subtle peripancreatic fat stranding in the region of the pancreatic head, mild diverticulosis. His lipase is normal. His ALT were mildly elevated 74 on admission and 56 today. Triglycerides are normal at 116. GI was consulted and an EGD performed. The MRCP originally ordered was d/c bu GI and his diet was advance. Discharged in stable condition on oral PPI and tolerating his diet being advanced. Possible ESUS as OP per GI note 10-26-2017: C/o 8/10 epigastric an bilateral UQ pain. His diet was advaned and he 's not tolerating it. No N/V/D el sounds, hypoactive bowel sounds, rebound, splenomegaly, tenderness Assessment and Plan Acute pancreatitis His diet was andvanced yesterday following the EGD and his pain is worse today. IV fluids, Dilaudid as needed (dose increased from 0.5 to 1 mg q2 hrs prn) Protonix IV changed to oral by GI prophylaxis Diet advancedby GI O/P f/u recommended by GI. Possibly ESUS as OP needed per GI and to be arranged via GI at f/u visit C3 vertebral lesion: Consider further imaging if a pancreatic mass is found Polycythemia Likely secondary to dehydration Sepsis Physical Exam: General appearance: Present: A&O X 3, pleasant - Head Head exam: Present: atraumatic, normocephalic - Eye Eye exam: Present: PERRL, conjuntiva pink, sclera anicteric Pupils: Present: PERRL - Neck Neck exam general surgery: Present: supple, trachea midline. Absent: lymphadenopathy - Respiratory Respiratory exam: Present: CTAB. Absent: accessory muscle use, rales, rhonchi, wheezes - Cardiovascular Cardiovascular exam: Present: RRR, +S1, +S2. Absent: diastolic murmur, gallop, rubs, systolic murmur - GI/Abdominal GI/Abdominal exam: Present: guarding, normal bowel sounds, soft, no peritoneal signs. Absent: distended, hyperactive bowel sounds, hypoactive bowel sounds, rebound, splenomegaly, tenderness - Extremities Exam Extremities exam: Present: warm, radial pulses palpable and symmetrical. Absent : calf tenderness, cyanotic, pedal edema - Neurological Exam Neurological exam: Present: CN II-XII intact, oriented X3, no focal deficits. Absent: pronater drift, facial droop, speech deficit - Skin Skin exam: Present: dry, intact Time spent discussing smoking cessation with patient: more than 10 minutes - Time Spent with Patient Total time spent providing and/or coordinating discharge services: Greater than 30 minutes - Constitutional Vitals: Temp Pulse Resp BP Pulse Ox 97.8 F 78 16 158/98 95 10/27/17 11:14 10/27/17 11:14 10/27/17 11:14 10/27/17 11:14 10/27/17 11:14 General appearance: Present: A&O X 3, pleasant
[2017-10-27] MEDS ORDERED: *HR* OxyCODONE/APAP 10/325 TABLET PO PRN (13:37)
== END 2017-10-27 14:21 | disposition home or self-care (01) | DRG 440 ==
LOC: EMEROO 11:59 → 3ANU 11:59
PROVIDERS: ADMIT Internal Medicine; ATTEND Internal Medicine
PROC: ENDOEBX (2017-10-25 13:00)